=== PATIENT | female | born 1990 | race Caucasian/White ===

== ENCOUNTER 2017-04-18 10:14 | Emergency (ER) | payer OTHER ==
[~2017-04-18] VITALS: Ht 157.5 cm; Wt 90.0 kg
[~2017-04-18 10:14] MED LIST: PRENAT PO
[2017-04-18 10:21] VITALS: Ht 157.5 cm; Wt 90.0 kg
--- NOTE | 2017-04-18 14:11 | RADRPT ---
PROCEDURE: CT Brain without. CLINICAL INDICATION: Headache, right-sided facial droop. TECHNIQUE: A CT of the brain was performed on multidetector high-resolution CT scanner utilizing a xial sections from the skull base through the vertex without contrast. The scan was reviewed in sof t tissue brain and high frequency resolution bone algorithm windows. Images were reviewed on a high -resolution PACS workstation. One or more the following does reduction techniques were utilized: Aut omated exposure control, adjustment of the mA/ or kV according to patient's size, or use of iterativ e reconstruction technique. The exam CTDI = 44.77 mGy and the DLP = 630.2 mGy-cm. COMPARISON: None available. FINDINGS: The ventricles and sulci are age-appropriate. There is no intracranial hemorrhage, mass effect or mi dline shift. No abnormal intra-axial or extra-axial fluid collections are seen. The bolaños/white shelia er differentiation is preserved. No acute skull abnormality is noted. The visualized paranasal sinus es are essentially clear. IMPRESSION: 1. No acute intracranial hemorrhage, transcortical infarction or mass effect. If clinical concern p ersists brain MRI can be obtained for further evaluation. RPTAT: HH .Ela Alvarez MD, MD Date Time Electronically viewed and signed by .Ela Alvarez MD, MD on 04/18/2017 14:11 .N/
[2017-04-18] MEDS ORDERED: VALA500T PO (14:54)
[2017-04-18] MEDS ORDERED: MED4DP PO (14:54)
--- NOTE | 2017-04-18 15:01 | ERD ---
ER Documentation Chief Complaint Date/Time DATE: 04/18/17 TIME: 14:55 Chief Complaint LEFT FACIAL PARALYSIS, EQUAL [employer] HPI This is a 27-year-old female complains of a dull right occipital headache for the past 4 days is mild and constant no photophobia no fever no stiff neck no phonophobia worsening with position change. She states yesterday she developed the onset of right facial paralysis. She said she has no numbness no symptoms in her arms or legs. No hyperacusis but she does have an altered sense of taste. She says she has a difficult time closing her right eye ROS All systems reviewed and are negative except as per history of present illness. Medications Home Meds Active Scripts Valacyclovir Hcl* (Valacyclovir Hcl*) 500 Mg Tablet, 500 MG PO BID for 7 Days, TAB Prov:CONNIE HER DO 04/18/17 Methylprednisolone* (Medrol* DOSE PACK) 4 Mg/Dose-Pack Tab.ds.pk, 4 MG PO . DIRECTED, #1 PACKET Prov:CONNIE HER DO 04/18/17 Reported Medications Multivit/Min/Fol Ac/Iron/Pren* ( S*) 1 Tab Tab, 1 TAB PO DAILY, TAB 05/19/14 Allergies Allergies: Coded Allergies: aspirin (Verified Allergy, Intermediate, 09/14/14) PMhx/Soc History of Surgery: Yes ( 4 months ago) Hx Respiratory Disorders: Yes (asthma) Hx Alcohol Use: No Hx Substance Use: No Hx Tobacco Use: No FmHx Family History: No coronary disease Physical Exam Vitals Vital Signs Date Time Temp Pulse Resp B/P Pulse Ox O2 Delivery O2 Flow Rate FiO2 04/18/17 10:21 98.1 89 18 139/78 99 Physical Exam Const: [Well-developed, well-nourished] Head: [Atraumatic, normocephalic] Eyes: [Normal Conjunctiva, PERRLA, EOMI, normal sclera, no nystagmus] ENT: [Normal External Ears, Nose and Mouth, moist mucus membranes.] Neck: [Full range of motion. No meningismus, no lymphadenopathy.] Resp: [Clear to auscultation bilaterally, no wheezing, rhonchi, rales] Cardio: [Regular rate and rhythm, no murmurs, S1 S2 present] Abd: [Soft, non tender x 4, non distended. Normal bowel sounds, no guarding or rebound, no pulsitile abdominal masses or bruits] Skin: [No petechiae or rashes, no ecchymosis , no maculopapular rash] Back: [No midline or flank tenderness] Ext: [No cyanosis, or edema, FROM x 4, normal inspection, neurovascularly intact x 4] Neur: [Awake and alert, STR 5/5 x 4, sensation intact x 4, right facial paralysis with forehead involvement , cerebellum intact] Psych: [Normal Mood and Affect] Procedures/MDM PROCEDURE: CT Brain without. CLINICAL INDICATION: Headache, right-sided facial droop. TECHNIQUE: A CT of the brain was performed on multidetector high-resolution CT scanner utilizing axial sections from the skull base through the vertex without contrast. The scan was reviewed in soft tissue brain and high frequency resolution bone algorithm windows. Images were reviewed on a high- resolution PACS workstation. One or more the following does reduction techniques were utilized: Automated exposure control, adjustment of the mA/ or kV according to patient's size, or use of iterative reconstruction technique. The exam CTDI = 44.77 mGy and the DLP = 630.2 mGy-cm. COMPARISON: None available. FINDINGS: The ventricles and sulci are age-appropriate. There is no intracranial hemorrhage, mass effect or midline shift. No abnormal intra-axial or extra- axial fluid collections are seen. The bolaños/white matter differentiation is preserved. No acute skull abnormality is noted. The visualized paranasal sinuses are essentially clear. IMPRESSION: 1. No acute intracranial hemorrhage, transcortical infarction or mass effect. If clinical concern persists brain MRI can be obtained for further evaluation. 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 Discussed orbital care with her extensively Departure Diagnosis: Primary Impression: Bean's disease Condition: Stable Patient Instructions: Bean's Palsy CONNIE HER DO Apr 18, 2017 15:01
[2017-04-18 15:50] VITALS: BP 127/72; PULSE 75; RESP 16; TEMP 97.2
== END 2017-04-18 15:50 | disposition home or self-care (01) ==
LOC: FTE 10:14
DX: G51.0 Bell's palsy (principal); J45.909 Unspecified asthma, uncomplicated
CPT/HCPCS: 70450; Z7502